=== PATIENT | female | born 1960 | race Caucasian/White ===

== ENCOUNTER 2020-06-14 14:44 | Outpatient (CLI) | payer BC, SELFPAY ==
--- NOTE | ~2020-06-14 | MM_ITS ---
EXAMINATION: MM screening [facility] BI w shyanne HISTORY: Screening mammogram TECHNIQUE: Craniocaudal and mediolateral oblique 3-D tomosynthesis images were obtained and synthetic 2-D images were generated. CAD analysis was submitted and interpreted. COMPARISON: 05/24/2019, 05/18/2018, 04/29/2017 BREAST PARENCHYMAL COMPOSITION: The breasts are heterogeneously dense, which may obscure small masses . FINDINGS: There is no evidence of suspicious mass, calcification, or architectural distortion to sugg est malignancy in either breast. There has been no suspicious interval change. IMPRESSION: 1. No mammographic evidence of malignancy. 2. Recommend routine screening mammography in one year. BI-RADS Category 1: Negative Reviewed, dictated and finalized at location A.
== END 2020-06-14 14:45 | disposition home or self-care (01) ==
LOC: ANHIMG 14:47
PROVIDERS: PCP Family Medicine; Visit Provider Family Medicine
DX: Z12.31 Encounter for screening mammogram for malignant neoplasm of breast (principal)
CPT/HCPCS: 77063; 77067

== ENCOUNTER 2020-12-25 09:16 | Outpatient (CLI) | payer BC, SELFPAY | END 2020-12-25 09:17 | disposition home or self-care (01) | LOC: ANHCOVIDVC 09:16 | PROVIDERS: PCP Family Medicine | DX: Z23 Encounter for immunization (principal) | CPT/HCPCS: 0001A; 91300 ==

== ENCOUNTER 2021-01-15 09:20 | Outpatient (CLI) | payer BC, SELFPAY | END 2021-01-15 09:21 | LOC: ANHCOVIDVC 09:20 | PROVIDERS: PCP Family Medicine | DX: Z23 Encounter for immunization (principal) | CPT/HCPCS: 0002A; 91300 ==

== ENCOUNTER 2021-07-07 15:02 | Outpatient (CLI) | payer BC, SELFPAY ==
--- NOTE | ~2021-07-07 | MM_ITS ---
EXAMINATION: MM screening [facility] BI w shyanne HISTORY: Screening mammogram TECHNIQUE: Craniocaudal and mediolateral oblique 3-D tomosynthesis images were obtained and synthetic 2-D images were generated. CAD analysis was submitted and interpreted. COMPARISON: 06/14/2020, 05/24/2019, 05/18/2018 bilateral digital screening mammogram examinations BREAST PARENCHYMAL COMPOSITION: There are scattered areas of fibroglandular density. FINDINGS: There is no evidence of suspicious mass, calcification, or architectural distortion to sugg est malignancy in either breast. There has been no suspicious interval change. IMPRESSION: 1. No mammographic evidence of malignancy. 2. Recommend routine screening mammography in one year. BI-RADS Category 1: Negative Reviewed, dictated and finalized at location A.
== END 2021-07-07 15:03 | disposition home or self-care (01) ==
LOC: ANHIMG 15:04
PROVIDERS: PCP Family Medicine; Visit Provider Family Medicine
DX: Z12.31 Encounter for screening mammogram for malignant neoplasm of breast (principal)
CPT/HCPCS: 77063; 77067

== ENCOUNTER 2021-07-09 06:40 | Outpatient (CLI) | payer BC, SELFPAY ==
--- NOTE | ~2021-07-09 | XR_ITS ---
EXAMINATION: XR chest 2V 07/09/2021 07:02 INDICATION: Cough PROCEDURE: PA and lateral views of the chest COMPARISON: 11/18/2013 FINDINGS: The lungs are clear. The cardiomediastinal silhouette is within normal limits. There are no pleural effusions. There is no pneumothorax suspected. There are cholecystectomy clips. IMPRESSION: 1: NO ACUTE CARDIOPULMONARY DISEASE. Reviewed, dictated and finalized at location A.
== END 2021-07-09 06:41 | disposition home or self-care (01) ==
LOC: ANHIMG 06:43
PROVIDERS: PCP Family Medicine; Visit Provider Physician Assistant
DX: R05 Cough (principal)
CPT/HCPCS: 71046

== ENCOUNTER 2022-08-13 01:43 | Day surgery (SDC) | payer BC, SELFPAY ==
[2022-06-15 14:49] VITALS: BMI 33.0
--- NOTE | 2022-07-28 14:35 | PC.NURSE ---
Confirmed new date and time with patient. Patient confirmed that no new medical hx is needed to be added to her chart and no new medication.
[2022-08-13 06:47] VITALS: BP 136/78; PULSE 73; RESP 18; TEMP 36.3; O2SAT 96
[2022-08-13] MEDS: LACTATED RINGERS 1,000 ML 150 ML IV CONT (06:58)
--- NOTE | 2022-08-13 07:22 | PM.HPGS ---
History of Present Illness History of Present Illness Consent: Risks, benefits, and alternatives have been discussed and questions answered. Patient agrees to proceed with procedure. Chief complaint: neoplasm screening Narrative: Li Arteaga is a 61 year old female Presents for screening colonoscopy. Patient's current weight appetite and bowel movements are normal. Patient denies abdominal pain. She has had no bleeding. Family history noncontributory. Patient had previous colonoscopy 2009 that was unremarkable. She presents today for neoplasia screening colonoscopy. Review of Systems Review of Systems: Review of systems noncontributory. [facility] Family History Family History Father Hypertension Family history of elevated blood lipids Family history of malignant neoplasm Diabetes mellitus Family history of blood dyscrasia Family history of hearing loss Mother Family history of elevated blood lipids Diabetes mellitus Hypertension Family history of hearing loss Social History Social History (Updated 03/31/22 @ 08:39 by JOSE Moss) Smoking status: Never smoker Alcohol intake: current Drinks per week: 1 Substance use: never Substance use type: does not use Living arrangements: with family Spiritual care concerns: No Meds Home Medications and Allergies Home Medications Medication Instructions Recorded Confirmed Type atorvastatin 20 mg tablet See Rx Instructions .Route 03/31/22 06/15/22 Rx .COMPLEX #90 tabs losartan 50 mg-hydrochlorothiazide See Rx Instructions .Route 04/15/22 06/15/22 Rx 12.5 mg tablet .COMPLEX #90 tabs Allergies Allergy/AdvReac Type Severity Reaction Status Date / Time Tetanus Vaccines and Toxoid Allergy Intermediate HIGH FEVER Verified 08/13/22 06:46 Vital Signs Vital Signs - 24 hr 08/13/22 06:47 Temperature 97.3 F L Pulse Rate 73 Respiratory Rate 18 Blood Pressure 136/78 Pulse Oximetry 96 Oxygen Delivery Room Air Exam Narrative: Physical exam reveals patient to be alert. Vital signs stable. HEENT exam is unremarkable. Patient is anicteric. Lungs are clear to auscultation and percussion. Heart is without murmur or extra sounds. Abdomen bowel sounds are present soft nontender with no organomegaly. Digital external rectal exam is normal. Assessment and Plan Assessment and plan (1) Encounter for screening colonoscopy: Code(s): Z12.11 - Encounter for screening for malignant neoplasm of colon Status: Acute Assessment and Plan: Patient presents for screening colonoscopy. Patient appears to be at average risk for colon polyps.
--- NOTE | 2022-08-13 07:53 | WPDANESEPPF ---
Anes - Initial Pre Proc Eval Procedure: Operation Date: 08/13/22 08:00 Proposed Procedures p Screening Colonoscopy - Roosevelt Byrd MD Date/Time: 08/13/22 07:53 Surgeon: Roosevelt Byrd MD Pre Op Diagnosis: neoplasm screening Patient Data Age: 61 Gender: F Height: 1.57 m Weight: 83.4 kg Last Vital Signs Temp 97.3 F L 08/13/22 06:47 Pulse 73 08/13/22 06:47 Resp 18 08/13/22 06:47 BP 136/78 08/13/22 06:47 Pulse Ox 96 08/13/22 06:47 O2 Del Method Room Air 08/13/22 06:47 Allergies Allergy/AdvReac Type Severity Reaction Status Date / Time Tetanus Vaccines and Toxoid Allergy Intermediate HIGH FEVER Verified 08/13/22 06:46 Home Medications Medication Instructions Recorded Confirmed Type atorvastatin 20 mg tablet See Rx Instructions .Route 03/31/22 06/15/22 Rx .COMPLEX #90 tabs losartan 50 mg-hydrochlorothiazide See Rx Instructions .Route 04/15/22 06/15/22 Rx 12.5 mg tablet .COMPLEX #90 tabs Patient hx anesthesia problems: none Family hx anesthesia problems: none Results Review: All pre-operative results and documents have been reviewed as part of the pre-operative evaluation. [facility] Family History Family History Father Hypertension Family history of elevated blood lipids Family history of malignant neoplasm Diabetes mellitus Family history of blood dyscrasia Family history of hearing loss Mother Family history of elevated blood lipids Diabetes mellitus Hypertension Family history of hearing loss Social History Social History (Updated 03/31/22 @ 08:39 by JOSE Moss) Smoking status: Never smoker Alcohol intake: current Drinks per week: 1 Substance use: never Substance use type: does not use Living arrangements: with family Spiritual care concerns: No Anes - Eval Final PreProcedure Day of Procedure 08/13/22 07:53 Patient weight: obese Heart: regular rate and rhythm Lungs: clear to auscultation Airway: Mallampati scale class II Neurological: alert and oriented Last oral intake: >/= 8 hours ASA classification: II Emergent: no Anesthetic plan: proceed Anesthesia type and monitoring: general GIVS and standard monitoring Results Review: All pre-operative results and documents have been reviewed as part of the pre-operative evaluation. Informed Consent: The patient's anesthetic plan and its attendant risks and benefits were discussed with the patient/family/POA. Questions were solicited and answers provided to the satisfaction of the patient/family/POA.
[2022-08-13 08:19] VITALS: BP 106/67; PULSE 58; RESP 22; O2SAT 98
[2022-08-13 08:29] VITALS: BP 120/76; PULSE 54; RESP 24; O2SAT 99
[2022-08-13 08:39] VITALS: BP 137/57; PULSE 53; RESP 21; O2SAT 98
--- NOTE | 2022-08-13 08:44 | SUR.PHASEII ---
spoke with Dr. Rubio patient HR in the 50's during recovery. Patient reports feeling normal . No new orders at this time.
== END 2022-08-13 08:47 | disposition home or self-care (01) ==
PROVIDERS: PCP Emergency Medicine; Visit Provider Internal Medicine Gastroenterology
PROC: 0DJD8ZZ Inspection of Lower Intestinal Tract, Via Natural or Artificial Opening Endoscopic (ICD-10-PCS; CPT 45378; principal; 2022-08-13 08:00)
DX: Z12.11 Encounter for screening for malignant neoplasm of colon (principal); D12.5 Benign neoplasm of sigmoid colon; K64.8 Other hemorrhoids; K57.30 Diverticulosis of large intestine without perforation or abscess without bleeding; E66.9 Obesity, unspecified; Z68.33 Body mass index [BMI] 33.0-33.9, adult
CPT/HCPCS: 45385; 88305; J2704; J7120

== ENCOUNTER 2022-08-27 08:24 | Outpatient (CLI) | payer BC, SELFPAY ==
--- NOTE | ~2022-08-27 | MM_ITS ---
EXAMINATION: MM screening [facility] BI w shyanne HISTORY: Screening mammogram TECHNIQUE: Craniocaudal and mediolateral oblique 3-D tomosynthesis images were obtained and synthetic 2-D images were generated. CAD analysis was submitted and interpreted. COMPARISON: No prior mammogram is available for comparison at this institution. BREAST PARENCHYMAL COMPOSITION: There are scattered areas of fibroglandular density. FINDINGS: There is no evidence of suspicious mass, calcification, or architectural distortion to sugg est malignancy in either breast. There has been no suspicious interval change. IMPRESSION: 1. No mammographic evidence of malignancy. 2. Recommend routine screening mammography in one year. BI-RADS Category 1: Negative Reviewed, dictated and finalized at location A. AR MAN
== END 2022-08-27 08:25 | disposition home or self-care (01) ==
PROVIDERS: PCP Emergency Medicine; Visit Provider Physician Assistant
DX: Z12.31 Encounter for screening mammogram for malignant neoplasm of breast (principal)
CPT/HCPCS: 77063; 77067

== ENCOUNTER 2023-09-29 09:24 | Outpatient (CLI) | payer BC, SELFPAY ==
--- NOTE | ~2023-09-29 | MM_ITS ---
EXAMINATION: MM screening [facility] BI w shyanne HISTORY: Screening TECHNIQUE: Craniocaudal and mediolateral oblique 3-D tomosynthesis images were obtained and synthetic 2-D images were generated. CAD analysis was submitted and interpreted. COMPARISON: Comparison to multiple prior studies sequentially, with oldest reviewed study dated 04/29. BREAST PARENCHYMAL COMPOSITION: There are scattered areas of fibroglandular density. FINDINGS: There is no evidence of suspicious mass, calcification, or architectural distortion to sugg est malignancy in either breast. There has been no suspicious interval change. IMPRESSION: 1. No mammographic evidence of malignancy. 2. Recommend routine screening mammography in one year. BI-RADS Category 1: Negative Reviewed, dictated and finalized at location A. MOTIVE SERVICE PORTER
== END 2023-09-29 09:25 | disposition home or self-care (01) ==
LOC: ANHIMG 09:27
PROVIDERS: PCP Emergency Medicine; Visit Provider Emergency Medicine
DX: Z12.31 Encounter for screening mammogram for malignant neoplasm of breast (principal)
CPT/HCPCS: 77063; 77067

== ENCOUNTER → 2024-07-31 10:00 | Outpatient (REF) | payer MEDICARE, OTHER, SELFPAY | LOC: ANHLAB 10:00 | PROVIDERS: PCP Family Medicine; Visit Provider Plastic Surgery | DX: C43.59 Malignant melanoma of other part of trunk (principal) | CPT/HCPCS: 88305 ==

== ENCOUNTER 2024-08-23 10:01 | Outpatient (CLI) | payer MEDICARE, OTHER, SELFPAY ==
--- NOTE | ~2024-08-23 | CT_ITS ---
EXAMINATION: CT sinus wo con DATE: 08/23/2024 10:48 INDICATION: Nasal congestion. TECHNIQUE: Computed tomography (CT) of the paranasal sinuses was performed without intravenous contra st. Iterative reconstruction technique was employed. The dose-length product was 269.07 mGy-cm. COMPARISON: None FINDINGS: There is mild mucosal thickening in right frontal sinus and the anterior ethmoid sinuses. T he sphenoid sinuses and maxillary sinuses are clear. There is leftward deviation of superior nasal se ptum and rightward deviation of the inferior nasal septum. The ostiomeatal units are patent. IMPRESSION: 1. Mild mucosal thickening in the paranasal sinuses. 2. Leftward deviation of superior nasal septum and rightward deviation of the inferior nasal septum. Reviewed, dictated and finalized at location A. EMIC SUPPORT COORDINATOR IMPRESSION: 1. Mild mucosal thickening in the paranasal sinuses. 2. Leftward deviation of superior nasal septum and rightward deviation of the i nferior nasal septum.
== END 2024-08-23 10:02 | disposition home or self-care (01) ==
PROVIDERS: PCP Family Medicine; Visit Provider Otolaryngology
DX: R09.81 Nasal congestion (principal); R05.8 Other specified cough; J34.2 Deviated nasal septum
CPT/HCPCS: 70486

== ENCOUNTER 2024-10-09 07:27 | Outpatient (CLI) | payer MEDICARE, OTHER, SELFPAY ==
--- NOTE | ~2024-10-09 | MM_ITS ---
EXAMINATION: MM screening [facility] BI w shyanne HISTORY: Screening TECHNIQUE: Craniocaudal and mediolateral oblique 3-D tomosynthesis images were obtained and synthetic 2-D images were generated. CAD analysis was submitted and interpreted. COMPARISON: Examination was compared with multiple prior studies performed most recently on 3 and dating back to 07/07/2021 BREAST PARENCHYMAL COMPOSITION: There are scattered areas of fibroglandular density. FINDINGS: Stable parenchymal pattern without suspicious microcalcifications, architectural distortion, discrete masses or significant asymmetry. IMPRESSION: 1. No mammographic evidence of malignancy. 2. Recommend routine screening mammography in one year. BI-RADS Category 1: Negative examination. Reviewed, dictated and finalized at location A. RAL INTERNIST
== END 2024-10-09 07:28 | disposition home or self-care (01) ==
LOC: ANHIMG 07:30
PROVIDERS: PCP Family Medicine; Visit Provider Family Medicine
DX: Z12.31 Encounter for screening mammogram for malignant neoplasm of breast (principal)
CPT/HCPCS: 77063; 77067

== ENCOUNTER 2025-03-07 14:14 | Outpatient (CLI) | payer MEDICARE, OTHER, SELFPAY ==
--- NOTE | ~2025-03-07 | DEXA_ITS ---
Bone Density Report Name: PORTILLO LOOMIS Age: 64 Sex: Female Ethnicity: White Date of : 1960 Indication: postmenopausal; screening for osteoporosis; cancer; Referring Provider: TON NDIAYE Study: Bone densitometry was performed. Exam Date: March 07, 2025 Accession number: [id number] Bone Density: Region BMD T-score Z-score Classification AP Spine(L1-L4) 1.212 1.5 3.4 Normal Femoral Neck (Left) 1.005 1.4 3.0 Normal Total Hip (Left) 1.159 1.8 3.1 Normal Femoral Neck (Right) 1.107 2.3 3.9 Normal Total Hip (Right) 1.282 2.8 4.1 Normal Total Hip Mean 1.221 2.3 3.6 Normal World Health Organization criteria for BMD impression classify patients as: Normal (T-score at or above -1.0), Osteopenia (T-score between -1.0 and -2.5), or Osteoporosis (T-score at or below -2.5). 10-year Fracture Risk: FRAX not reported because: All T-scores for Spine Total, Hip Total, Femoral Neck at or above -1.0 Clinical Information Provided by Patient: Has the following medical conditions: Cancer Patient maximum height was 62 Menopause Age: 40 Drinks caffeinated beverages Onset of menses at age 7 Number of children 1 Impression: The patient has normal bone mass. Discussion: LOW RISK OF FRACTURE; BONE DENSITY IS WELL ABOVE THE MINIMUM DESIRABLE LEVEL AND ABOVE AVERAGE FOR AGE AND SEX AT ALL SKELETAL SITES TESTED. This person's bone density is above expected limits for age and sex. This is rarely clinically significant, but should be pursued if there are significant musculoskeletal complaints. The patient should follow a healthful lifestyle (good nutrition with adequate calcium and vitamin D, and appropriate weight-bearing exercise). Follow-Up: Consider repeating this study in 5 years or sooner if there is some new clinical indication. Reported by: ANALILIA on 03/07/2025 2:48:00 PM. Reviewed, dictated and finalized at location A.
== END 2025-03-07 14:15 | disposition home or self-care (01) ==
LOC: ANHIMG 14:15
PROVIDERS: PCP Family Medicine; Visit Provider Nurse Practitioner Family
DX: Z78.0 Asymptomatic menopausal state (principal)
CPT/HCPCS: 77080

== ENCOUNTER 2025-07-17 08:04 | Outpatient (CLI) | payer MEDICARE, OTHER, SELFPAY ==
[2025-07-17 13:01] LABS: Hematocrit 41.9 % (37.0-47.0); Hemoglobin 13.5 g/dL (12.0-15.0); Immature Granulocyte Percent A 0.2 % (0-0.5); Lymphocytes Absolute Auto 1.20 K/mm3 (0.9-3.2); Mean Corpuscular HGB Conc 32.2 g/dl (32-36); Mean Corpuscular Hemoglobin 29.7 pg (26-34); Mean Corpuscular Volume 92.1 fl (80-100); Nucleated Red Blood Cells Absolute Auto 0.000 K/mm3 (0.0-0.012); Nucleated Red Blood Cells Perc 0.0 % (0.0-0.2); Platelet Count Result 242 k/mm3 (150-375); Red Blood Count 4.55 M/mm3 (4.2-5.4); White Blood Count 5.2 K/mm3 (4.5-10.0)
[2025-07-17 13:15] LABS: Hemoglobin A1C 6.3 % (<5.7)
[2025-07-17 13:24] LABS: Alanine Aminotransferase 20 U/L (6-35); Albumin Level 4.5 g/dL (3.5-5.1); Alkaline Phosphatase 83 U/L (38-126); Anion Gap 8 mmol/L (4-12); Aspartate Amino Transferase 44 U/L (14-36); Bilirubin,Total 0.7 mg/dL (0.2-1.3); Blood Urea Nitrogen 14 mg/dL (7-17); Calcium 9.4 mg/dL (8.4-10.2); Carbon Dioxide 29 mmol/L (22-30); Chloride 101 mmol/L (98-107); Cholesterol 185 mg/dL (0-200); Estimated Glomerular Filt Rate > 60; Glucose 94 mg/dL (65-110); HDL Direct 48 mg/dL; Potassium 4.1 mmol/L (3.4-5.0); Sodium 138 mmol/L (137-145); Total Protein 7.9 g/dL (6.3-8.2); Triglycerides 132 mg/dL (<150)
[2025-07-17 14:04] LABS: Thyroid Stimulating Hormone 3.090 uIU/mL (0.465-4.680)
== END 2025-07-17 08:05 | disposition home or self-care (01) ==
LOC: ANHGOSHLAB 08:05
PROVIDERS: PCP Family Medicine; Visit Provider Nurse Practitioner Family
DX: C43.59 Malignant melanoma of other part of trunk (principal); E78.2 Mixed hyperlipidemia; I10 Essential (primary) hypertension; R73.01 Impaired fasting glucose; E55.9 Vitamin D deficiency, unspecified
CPT/HCPCS: 36415; 80053; 80061; 82306; 83036; 84443; 85025

== ENCOUNTER 2025-08-10 09:59 | Emergency (ER) | payer MEDICARE, OTHER, SELFPAY ==
--- NOTE | ~2025-08-10 | XR_ITS ---
XR foot LT min 3V 08/10/2025 10:20 Indication: Left heel pain Procedure: 4 views left foot Comparison: No prior studies for comparison. Findings: There is mild osteoarthritis of the first MTP joint. Lisfranc joint intact. No soft tissue abnormality. No foreign bodies. There is degenerative calcaneal enthesophyte. There is mild osteoarthritis of the midfoot. No fracture or traumatic malalignment Impression: 1: Mild polyarticular osteoarthritis. Reviewed, dictated and finalized at location O. Impression: 1: Mild polyarticular osteoarthritis.
[2025-08-10 10:12] VITALS: BP 115/80; PULSE 82; RESP 16; TEMP 36.3; O2SAT 100
--- NOTE | 2025-08-10 11:22 | ED.GENADULT ---
HPI - General Adult General Chief complaint: Extremity Injury, Lower Stated complaint: INJURED L FOOT Source: patient Mode of arrival: ambulatory Limitations: no limitations History of Present Illness HPI narrative: Pt presents for evaluation of left foot pain. She was playing pickle ball just prior to arrival when she felt something tear in her left heel. She states her pain is severe, without numerical rating. Pain is worse with weightbearing. She has not taken any medication to assist with her symptoms. Related Data Allergies Allergy/AdvReac Type Severity Reaction Status Date / Time Tetanus Vaccines and Toxoid Allergy Intermediate HIGH FEVER Verified 07/20/25 13:07 Review of Systems Review of Systems: CONSTITUTIONAL: Denies fever, chills, or sweats. EYES: Denies visual changes, redness, or discharge. ENT: Denies rhinorrhea, congestion, sore throat, or otalgia. CARDIOVASCULAR: Denies chest pain, palpitations, or edema. RESPIRATORY: Denies cough or dyspnea. GASTROINTESTINAL: Denies abdominal pain, nausea, vomiting, or diarrhea. GENITOURINARY: Denies dysuria or hematuria. SKIN: Denies rash or itching. MUSCULOSKELETAL: Reports left heel pain NEUROLOGIC: Denies headache, numbness, dizziness, or weakness. PSYCHIATRIC: Denies anxiety or depression. [facility] Past Medical History Medical History Hyperlipidemia Hypertension Surgical History Surgical History No pertinent past surgical history Family History Family History Father Hypertension Family history of elevated blood lipids Family history of malignant neoplasm Diabetes mellitus Family history of blood dyscrasia Family history of hearing loss Mother Family history of elevated blood lipids Diabetes mellitus Hypertension Family history of hearing loss Social History Social History Smoking status: Never smoker Alcohol intake: current Drinks per week: 1 Substance use: never Substance use type: does not use Lack of Transportation: No Current Housing: I Have Housing Concerned About Future Housing: No Difficulty Paying Gas/Electric Bills: No Difficulty Paying for Meds: No Currently Unemployed: No Education: Bachelor's Degree Difficulty w/ Childcare or Family Care: No Living arrangements: with family Spiritual care concerns: No Exam Narrative: GENERAL: Well-appearing, well-nourished, and in no acute distress. Seated in wheelchair HEAD: Normocephalic, atraumatic. EYES: PERRLA and EOMI. ENT: Nares clear, no rhinorrhea or epistaxis. Mucous membranes moist. Oropharynx without tonsillar hypertrophy exudate or other lesions. Bilateral TMs pearly lozano nonbulging NECK: Supple. No adenopathy or masses. No carotid bruits or JVD CHEST: Clear to auscultation. No respiratory distress. No wheezes rales or rhonchi HEART: Regular rate and rhythm. No murmur heard. Normal peripheral pulses. ABDOMEN: Soft, nontender, nondistended, normal active bowel sounds. EXTREMITIES:Tenderness noted to plantar aspect of the left heel. No obvious deformity. She is able to dorsi and plantarflex the left foot. SKIN: Warm, dry, no rash. NEURO: No focal deficits. Alert and oriented x3. PSYCH: Normal mood and affect. Course Course Emergency Course: This is a 64 year old female who presented for evaluation of left heel pain. X ray showed enthesophyte. I recommended she purchase an aircast boot. She was provided with a post-op shoe and crutches. Advised on RICE therapy. NSAIDs for pain. Follow up with podiatry. Go to the ER for worsening symptoms. Pt in agreement with plan of care. Level of Care: Express Care Visit Vital Signs Vital signs: Vital Signs Temperature 36.3 C L 08/10/25 10:12 Pulse Rate 82 08/10/25 10:12 Respiratory Rate 16 08/10/25 10:12 Blood Pressure 115/80 08/10/25 10:12 Pulse Oximetry 100 08/10/25 10:12 Oxygen Delivery Room Air 08/10/25 10:12 Temperature 36.3 C L 08/10/25 10:12 Pulse Rate 82 08/10/25 10:12 Respiratory Rate 16 08/10/25 10:12 Blood Pressure 115/80 08/10/25 10:12 Pulse Oximetry 100 08/10/25 10:12 Oxygen Delivery Room Air 08/10/25 10:12 Medical Decision Making Vital Signs Vital Signs: Vital Signs Temperature 36.3 C L 08/10/25 10:12 Pulse Rate 82 08/10/25 10:12 Respiratory Rate 16 08/10/25 10:12 Blood Pressure 115/80 08/10/25 10:12 Pulse Oximetry 100 08/10/25 10:12 Oxygen Delivery Room Air 08/10/25 10:12 Temperature 36.3 C L 08/10/25 10:12 Pulse Rate 82 08/10/25 10:12 Respiratory Rate 16 08/10/25 10:12 Blood Pressure 115/80 08/10/25 10:12 Pulse Oximetry 100 08/10/25 10:12 Oxygen Delivery Room Air 08/10/25 10:12 Imaging Data Radiologist's impression: XR foot LT min 3V 08/10/2025 10:20 Indication: Left heel pain Procedure: 4 views left foot Comparison: No prior studies for comparison. Findings: There is mild osteoarthritis of the first MTP joint. Lisfranc joint intact. No soft tissue abnormality. No foreign bodies. There is degenerative calcaneal enthesophyte. There is mild osteoarthritis of the midfoot. No fracture or traumatic malalignment Impression: 1: Mild polyarticular osteoarthritis. Discharge Plan Discharge Clinical Impression: Muscle strain of left foot Patient Disposition: Home Condition: Stable Instructions: Antibiotic Form, Muscle Strain (ED) Patient Language: [place] Citizen Prescriptions: No Action atorvastatin 20 mg tablet See Rx Instructions .ROUTE .COMPLEX Qty: 90 3RF Dose Instruction: Take 1 tablet by mouth once daily Rx Instructions: Take 1/2 tablet by mouth once daily. losartan-hydrochlorothiazide 50-12.5 mg tablet See Rx Instructions .ROUTE .COMPLEX Qty: 90 3RF Dose Instruction: Take 1 tablet by mouth once daily Rx Instructions: Take 1 tablet by mouth once daily Follow-up/Referrals: Debbie,Miguel Reese DPM [Non-Staff, Unknown] Alan Mills MD [Primary Care Provider, Family Practice] Time of Disposition: 11:23
== END 2025-08-10 11:44 | disposition home or self-care (01) ==
PROVIDERS: Emergency Provider Nurse Practitioner; PCP Family Medicine
DX: S96.912A Strain of unspecified muscle and tendon at ankle and foot level, left foot, initial encounter (principal); I10 Essential (primary) hypertension; E78.5 Hyperlipidemia, unspecified; X58.XXXA Exposure to other specified factors, initial encounter; Y93.73 Activity, racquet and hand sports
CPT/HCPCS: 73630; 99213; G0463

== ENCOUNTER 2025-10-15 07:47 | Outpatient (CLI) | payer MEDICARE, OTHER, SELFPAY ==
--- NOTE | ~2025-10-15 | MM_ITS ---
EXAMINATION: MM screening [facility] BI w shyanne HISTORY: Screening. TECHNIQUE: Craniocaudal and mediolateral oblique 3-D tomosynthesis images were obtained and synthetic 2-D images were generated. CAD analysis was submitted and interpreted. COMPARISON: 2023, 2022, and 2021 BREAST PARENCHYMAL COMPOSITION: Not Dense: There are scattered areas of fibroglandular tissue. FINDINGS: There are multiple, bilateral, circumscribed nodules/masses, a benign finding. No suspicious masses are seen. There are no suspicious calcifications. No unexplained architectural distortion is seen. There are no skin or nipple abnormalities identified. There is no adenopathy seen on the images submitted. IMPRESSION: No mammographic evidence to suggest malignancy is seen. The patient may return to screening mammography as per ACR guidelines. BI-RADS 2 - Benign. Reviewed, dictated and finalized at location A. R PRINTED CIRCUIT LAYOUT
== END 2025-10-15 07:48 | disposition home or self-care (01) ==
PROVIDERS: PCP Family Medicine; Visit Provider Family Medicine
DX: Z12.31 Encounter for screening mammogram for malignant neoplasm of breast (principal)
CPT/HCPCS: 77063; 77067